=== PATIENT | male | born 1990 | race Caucasian/White ===

== ENCOUNTER 2019-02-05 19:36 | Inpatient (IN) | payer MEDICAID ==
[~2019-02-05] VITALS: Ht 170.2 cm; Wt 71.9 kg
[2019-02-05] MEDS ORDERED: ONDANSETRON HCL 4 MG/2 ML VIAL IVP ONE (20:00)
[2019-02-05] MEDS ORDERED: SODIUM CHLORIDE 0.9% 1,000 ML IV ONE ×2 (20:00→22:45)
[2019-02-05] MEDS ORDERED: KETOROLAC TROMETHAMINE 30 MG/ML VIAL IVP ONE (21:30)
[2019-02-05] MEDS ORDERED: MAGNESIUM SULFATE 2 GM/WATER 50 ML IV ONE (21:30)
[2019-02-05 21:40] LABS: APPEARANCE,URINE CLEAR (CLEAR); BILIRUBIN,URINE NEGATIVE (NEGATIVE); GLUCOSE, URINE (UA) NEGATIVE (NEGATIVE); KETONES,URINE NEGATIVE (NEGATIVE); LEUKOCYTE ESTERASE ,URINE NEGATIVE (NEGATIVE); NITRATE,URINE NEGATIVE (NEGATIVE); OCCULT BLOOD,URINE NEGATIVE (NEGATIVE); PH,URINE 7.5 (5.0-8.0); PROTEIN,URINE NEGATIVE (NEGATIVE); UROBILINOGEN,URINE 0.2 mg/dL (<=1.0)
[2019-02-05 21:54] LABS: BASOPHILS % (AUTO) 0.3 % (0.0-2.0); EOSINOPHILS % (AUTO) 0.1 % (1.0-6.0); HEMATOCRIT 45.3 % (41-53); HEMOGLOBIN 15.5 g/dL (13.5-17.5); LYMPHOCYTES # (AUTO) 0.8 K/uL (1.0-4.8); MEAN CORPUSCULAR HEMOGLOBIN 29.9 pg (26.0-34.0); MEAN CORPUSCULAR HGB CONC 34.2 G/dL (31.0-37.0); MEAN CORPUSCULAR VOLUME 87 fL (80-100); MONOCYTES # (AUTO) 0.7 K/uL (0.1-1.0); MONOCYTES % (AUTO) 3.3 % (2.0-9.0); NEUTROPHILS # (AUTO) 19.1 K/uL (1.8-7.7); PLATELET COUNT (AUTO) 320 K/uL (150-450); RED BLOOD CELL COUNT(AUTO) 5.18 MIL/uL (4.50-5.90); RED CELL DISTRIBUTION WIDTH 12.7 % (11.5-14.5)
[2019-02-05 22:13] LABS: ANION GAP 9 mmol/L (8-16); CALCIUM, TOTAL 8.5 mg/dL (8.8-10.5); CARBON DIOXIDE 25 mmol/L (22-29); CHLORIDE 102 mmol/L (98-107); CREATININE 0.77 mg/dL (0.60-1.30); GLOMERULAR FILTR. RATE CALC > 60 mL/min (>60); GLUCOSE,RANDOM 120 mg/dL (70-110); POTASSIUM 3.5 mmol/L (3.5-5.1); SODIUM SERUM 136 mmol/L (136-145); UREA NITROGEN, BLOOD 13 mg/dL (7-18)
[2019-02-05 22:18] LABS: ALANINE AMINOTRANSFERASE 28 U/L (12-78); ALBUMIN 3.7 g/dL (3.4-5.0); ALKALINE PHOSPHATASE 83 U/L (46-116); ASPARTATE AMINOTRANSFERASE 19 U/L (15-37); BILIRUBIN,TOTAL 0.4 mg/dL (0.1-1.0); LIPASE 78 U/L (73-393); TOTAL PROTEIN, SERUM 7.5 g/dL (6.4-8.2)
[2019-02-05 22:25] LABS: NEUTROPHILS % (AUTO) 92.3 % (40.0-70.0)
[2019-02-06] MEDS ORDERED: GADOBUTROL 1 MMOL/ML 10 ML VIAL IVP ONE (00:17)
[2019-02-06] MEDS ORDERED: LIDOCAINE 1% 10 ML VIAL ONE (03:33)
[2019-02-06] MEDS ORDERED: DEXAMETHASONE SOD PHOS 4 MG/ML 5 ML VIAL IVP ONE (04:15)
[2019-02-06] MEDS ORDERED: CefTRIAXone SODIUM 2 GM in DEXTROSE 5%-WATER 50 ML IV ONE (04:15)
[2019-02-06] MEDS ORDERED: MORPHINE SULFATE 4 MG/ML SYRINGE IVP ONE (04:15)
[2019-02-06] MEDS ORDERED: ONDANSETRON HCL 4 MG/2 ML VIAL IVP ONE (04:15)
[2019-02-06] MEDS ORDERED: CefTRIAXone 1 GM/DEXTROSE 50 ML IV ONE (04:15)
[2019-02-06] MEDS ORDERED: VANCOMYCIN HCL 1 GM/D5% WATER 200 ML IV ONE (04:15)
[2019-02-06 04:44] LABS: GLUCOSE, CSF 1 mg/dL (50-80)
[2019-02-06] MEDS ORDERED: OxyCODONE HCL/ACETAMINOPHEN 5-325 MG TABLET PO PRN (04:45)
[2019-02-06] MEDS ORDERED: MAGNESIUM HYDROXIDE SUSPENSION 30 ML UDCUP PO PRN (04:45)
[2019-02-06] MEDS ORDERED: ZOLPIDEM TARTRATE 5 MG TABLET PO PRN (04:45)
[2019-02-06] MEDS ORDERED: MORPHINE SULFATE 2 MG/ML SYRINGE IVP PRN (04:45)
[2019-02-06] MEDS ORDERED: ALBUTEROL SULFATE 2.5 MG/0.5 ML NEB SOLUTION NEB PRN (04:45)
[2019-02-06] MEDS ORDERED: ONDANSETRON HCL 4 MG/2 ML VIAL IVP PRN (04:45)
[2019-02-06] MEDS ORDERED: BISACODYL 10 MG RECTAL RECTAL SUPPOSITORY PR PRN (04:45)
[2019-02-06] MEDS ORDERED: IPRATROPIUM BROMIDE 0.5 MG/2.5 ML NEB SOLUTION NEB PRN (04:45)
[2019-02-06 04:52] LABS: TOTAL PROTEIN, CSF 358 mg/dL (15-45)
[2019-02-06 05:45] LABS: CSF TOTAL VOLUME 11.5 mL; CSF TUBE NUMBER 1
[2019-02-06 05:46] LABS: APPEARANCE,CSF CLOUDY (CLEAR); COLOR,CSF COLORLESS (COLORLESS)
[2019-02-06 05:47] LABS: WHITE BLOOD CELL1,CSF 227.8 CMM (0-5)
[2019-02-06 05:48] LABS: CSF 2ND TUBE NUMBER 4; LYMPHOCYTES1,CSF 6 %; MONOCYTES1,CSF 4 %; NEUTROPHILS1,CSF 90 %; RED BLOOD CELL1,CSF 1967.2 CMM (0-0)
[2019-02-06 05:49] LABS: APPEARANCE2,CSF CLOUDY (CLEAR); COLOR2,CSF COLORLESS (COLORLESS)
[2019-02-06 05:50] LABS: LYMPHOCYTES2,CSF 6 %; NEUTROPHILS2,CSF 88 %; RED BLOOD CELL2,CSF 246.7 CMM (0-0)
[2019-02-06 05:52] LABS: MONOCYTES2,CSF 6 %
[2019-02-06] MEDS: FAMOTIDINE 20 MG TABLET PO SCH (08:53)
[2019-02-06] MEDS: HEPARIN SODIUM,PORCINE 5,000 UNITS/ML VIAL SQ SCH ×2 (08:54→19:57)
[2019-02-06] MEDS ORDERED: VANCOMYCIN HCL 1 GM/D5% WATER 200 ML IV SCH (10:00)
[2019-02-06 12:05] VITALS: BP 120/64
[2019-02-06] MEDS ORDERED: SODIUM CHLORIDE 0.9% 500 ML IV ONE (13:49)
[2019-02-06] MEDS: VANCOMYCIN HCL 1 GM/D5% WATER 200 ML IV SCH ×3 (13:52→23:07)
[2019-02-06 15:29] VITALS: BP 106/56
[2019-02-06] MEDS: CefTRIAXone SODIUM 2 GM in DEXTROSE 5%-WATER 50 ML IV SCH (16:50)
[2019-02-06 19:23] VITALS: BP 116/59
[2019-02-06 23:26] VITALS: BP 115/57
[2019-02-07] MEDS: CefTRIAXone SODIUM 2 GM in DEXTROSE 5%-WATER 50 ML IV SCH ×2 (03:46→16:05)
[2019-02-07 03:55] VITALS: BP 111/60
[2019-02-07] MEDS: VANCOMYCIN HCL 1 GM/D5% WATER 200 ML IV SCH ×4 (05:01→23:22)
[2019-02-07 05:55] LABS: BASOPHILS % (AUTO) 0.1 % (0.0-2.0); EOSINOPHILS % (AUTO) 0 % (1.0-6.0); HEMATOCRIT 44.4 % (41-53); HEMOGLOBIN 14.8 g/dL (13.5-17.5); LYMPHOCYTES # (AUTO) 1.7 K/uL (1.0-4.8); LYMPHOCYTES % (AUTO) 12.7 % (22.0-44.0); MEAN CORPUSCULAR HEMOGLOBIN 29.8 pg (26.0-34.0); MEAN CORPUSCULAR HGB CONC 33.3 G/dL (31.0-37.0); MEAN CORPUSCULAR VOLUME 90 fL (80-100); MONOCYTES % (AUTO) 7.2 % (2.0-9.0); NEUTROPHILS # (AUTO) 10.6 K/uL (1.8-7.7); PLATELET COUNT (AUTO) 328 K/uL (150-450); RED BLOOD CELL COUNT(AUTO) 4.97 MIL/uL (4.50-5.90); RED CELL DISTRIBUTION WIDTH 13.1 % (11.5-14.5)
[2019-02-07 07:17] LABS: ALANINE AMINOTRANSFERASE 22 U/L (12-78); ALBUMIN 3.3 g/dL (3.4-5.0); ALKALINE PHOSPHATASE 73 U/L (46-116); ANION GAP 10 mmol/L (8-16); ASPARTATE AMINOTRANSFERASE 14 U/L (15-37); BILIRUBIN,TOTAL 0.2 mg/dL (0.1-1.0); CALCIUM, TOTAL 8.9 mg/dL (8.8-10.5); CARBON DIOXIDE 25 mmol/L (22-29); CHLORIDE 105 mmol/L (98-107); GLOMERULAR FILTR. RATE CALC > 60 mL/min (>60); GLUCOSE,RANDOM 142 mg/dL (70-110); PHOSPHORUS 3.7 mg/dL (2.5-4.9); POTASSIUM 3.8 mmol/L (3.5-5.1); SODIUM SERUM 140 mmol/L (136-145); TOTAL PROTEIN, SERUM 7.2 g/dL (6.4-8.2); UREA NITROGEN, BLOOD 15 mg/dL (7-18); VANCOMYCIN,RANDOM 30.3 mcg/mL (25.0-50.0)
[2019-02-07 07:40] VITALS: BP 111/64
[2019-02-07] MEDS: HEPARIN SODIUM,PORCINE 5,000 UNITS/ML VIAL SQ SCH ×2 (07:52→20:41)
[2019-02-07] MEDS: FAMOTIDINE 20 MG TABLET PO SCH (07:52)
[2019-02-07 11:12] VITALS: BP 110/60
[2019-02-07 11:17] VITALS: BP 133/74
[2019-02-07 15:16] VITALS: BP 120/65
[2019-02-07 19:54] VITALS: BP 133/76
[2019-02-08] VITALS: BP 103/62
[2019-02-08] MEDS: CefTRIAXone SODIUM 2 GM in DEXTROSE 5%-WATER 50 ML IV SCH ×2 (04:12→15:10)
[2019-02-08 04:43] VITALS: BP 112/60
[2019-02-08] MEDS: VANCOMYCIN HCL 1 GM/D5% WATER 200 ML IV SCH ×3 (05:43→17:44)
[2019-02-08 07:15] VITALS: BP 118/64
[2019-02-08 07:19] LABS: ANION GAP 11 mmol/L (8-16); CALCIUM, TOTAL 9.1 mg/dL (8.8-10.5); CARBON DIOXIDE 24 mmol/L (22-29); CHLORIDE 105 mmol/L (98-107); CREATININE 0.82 mg/dL (0.60-1.30); GLOMERULAR FILTR. RATE CALC > 60 mL/min (>60); GLUCOSE,RANDOM 99 mg/dL (70-110); SODIUM SERUM 140 mmol/L (136-145); UREA NITROGEN, BLOOD 13 mg/dL (7-18); VANCOMYCIN,RANDOM 36.6 mcg/mL (25.0-50.0)
[2019-02-08] MEDS: FAMOTIDINE 20 MG TABLET PO SCH (08:19)
[2019-02-08] MEDS: HEPARIN SODIUM,PORCINE 5,000 UNITS/ML VIAL SQ SCH ×2 (08:19→21:54)
[2019-02-08 11:00] VITALS: BP 92/52
[2019-02-08 15:28] VITALS: BP 109/60
[2019-02-08 19:42] VITALS: BP 147/79
[2019-02-09] MEDS: VANCOMYCIN HCL 1 GM/D5% WATER 200 ML IV SCH ×4 (00:13→17:55)
[2019-02-09 00:22] VITALS: BP 122/52
[2019-02-09 05:07] VITALS: BP 112/73
[2019-02-09] MEDS: CefTRIAXone SODIUM 2 GM in DEXTROSE 5%-WATER 50 ML IV SCH ×2 (05:08→15:37)
[2019-02-09 06:23] LABS: ANION GAP 9 mmol/L (8-16); CALCIUM, TOTAL 9.3 mg/dL (8.8-10.5); CARBON DIOXIDE 30 mmol/L (22-29); CHLORIDE 99 mmol/L (98-107); CREATININE 0.83 mg/dL (0.60-1.30); GLOMERULAR FILTR. RATE CALC > 60 mL/min (>60); GLUCOSE,RANDOM 113 mg/dL (70-110); POTASSIUM 3.6 mmol/L (3.5-5.1); SODIUM SERUM 138 mmol/L (136-145); UREA NITROGEN, BLOOD 14 mg/dL (7-18)
[2019-02-09 07:48] VITALS: BP 117/68
[2019-02-09] MEDS: FAMOTIDINE 20 MG TABLET PO SCH (08:04)
[2019-02-09] MEDS: HEPARIN SODIUM,PORCINE 5,000 UNITS/ML VIAL SQ SCH ×2 (08:05→21:00)
[2019-02-09 11:37] VITALS: BP 103/75
[2019-02-09 15:48] VITALS: BP 118/74
[2019-02-09 19:21] VITALS: BP 131/85
[2019-02-10 00:04] VITALS: BP 117/70
[2019-02-10] MEDS: VANCOMYCIN HCL 1 GM/D5% WATER 200 ML IV SCH ×2 (03:01→06:23)
[2019-02-10] MEDS: CefTRIAXone SODIUM 2 GM in DEXTROSE 5%-WATER 50 ML IV SCH ×2 (03:03→16:30)
[2019-02-10 03:58] VITALS: BP 119/75
[2019-02-10 07:09] LABS: ANION GAP 10 mmol/L (8-16); CALCIUM, TOTAL 9.5 mg/dL (8.8-10.5); CARBON DIOXIDE 26 mmol/L (22-29); CHLORIDE 101 mmol/L (98-107); CREATININE 0.79 mg/dL (0.60-1.30); GLOMERULAR FILTR. RATE CALC > 60 mL/min (>60); GLUCOSE,RANDOM 95 mg/dL (70-110); POTASSIUM 4.1 mmol/L (3.5-5.1); SODIUM SERUM 137 mmol/L (136-145); UREA NITROGEN, BLOOD 12 mg/dL (7-18); VANCOMYCIN,RANDOM 26.4 mcg/mL (25.0-50.0)
[2019-02-10 08:10] VITALS: BP 111/70
[2019-02-10] MEDS: HEPARIN SODIUM,PORCINE 5,000 UNITS/ML VIAL SQ SCH ×2 (08:13→20:03)
[2019-02-10] MEDS: FAMOTIDINE 20 MG TABLET PO SCH (08:13)
[2019-02-10 11:33] VITALS: BP 100/52
[2019-02-10] MEDS: VANCOMYCIN HCL 1.25 GM in DEXTROSE 5%-WATER 250 ML IV SCH ×2 (12:27→18:14)
[2019-02-10 15:08] VITALS: BP 98/53
[2019-02-10] MEDS ORDERED: SODIUM CHLORIDE 0.9% 250 ML IV ONE (16:32)
[2019-02-10 20:07] VITALS: BP 133/92
[2019-02-11 00:11] VITALS: BP 124/64
[2019-02-11] MEDS: VANCOMYCIN HCL 1.25 GM in DEXTROSE 5%-WATER 250 ML IV SCH ×2 (00:38→05:29)
[2019-02-11] MEDS: CefTRIAXone SODIUM 2 GM in DEXTROSE 5%-WATER 50 ML IV SCH ×2 (04:03→16:08)
[2019-02-11 04:14] VITALS: BP 122/67
[2019-02-11 06:12] LABS: ANION GAP 10 mmol/L (8-16); CALCIUM, TOTAL 9.2 mg/dL (8.8-10.5); CARBON DIOXIDE 26 mmol/L (22-29); CHLORIDE 102 mmol/L (98-107); CREATININE 0.87 mg/dL (0.60-1.30); GLOMERULAR FILTR. RATE CALC > 60 mL/min (>60); GLUCOSE,RANDOM 106 mg/dL (70-110); POTASSIUM 4.1 mmol/L (3.5-5.1); SODIUM SERUM 138 mmol/L (136-145); UREA NITROGEN, BLOOD 13 mg/dL (7-18)
[2019-02-11 07:43] VITALS: BP 125/78
[2019-02-11] MEDS: FAMOTIDINE 20 MG TABLET PO SCH (08:53)
[2019-02-11] MEDS: HEPARIN SODIUM,PORCINE 5,000 UNITS/ML VIAL SQ SCH ×2 (08:53→20:11)
[2019-02-11 11:33] VITALS: BP 122/81
[2019-02-11] MEDS: VANCOMYCIN HCL 1 GM/D5% WATER 200 ML IV SCH ×3 (12:12→23:15)
[2019-02-11 15:27] VITALS: BP 118/70
[2019-02-11] MEDS: ACETAMINOPHEN 325 MG TABLET PO PRN (20:11)
[2019-02-11 20:45] VITALS: BP 144/90
[2019-02-12] VITALS (7 sets, daily range): BP systolic 97–127; BP diastolic 55–74
[2019-02-12] MEDS: CefTRIAXone SODIUM 2 GM in DEXTROSE 5%-WATER 50 ML IV SCH ×2 (04:24→16:07)
[2019-02-12] MEDS ORDERED: SODIUM CHLORIDE 0.9% 250 ML IV ONE (04:29)
[2019-02-12 05:49] LABS: BASOPHILS % (AUTO) 0.6 % (0.0-2.0); EOSINOPHILS % (AUTO) 7.2 % (1.0-6.0); HEMOGLOBIN 16.6 g/dL (13.5-17.5); LYMPHOCYTES # (AUTO) 2.2 K/uL (1.0-4.8); LYMPHOCYTES % (AUTO) 21.9 % (22.0-44.0); MEAN CORPUSCULAR HEMOGLOBIN 30.4 pg (26.0-34.0); MEAN CORPUSCULAR HGB CONC 33.9 G/dL (31.0-37.0); MEAN CORPUSCULAR VOLUME 90 fL (80-100); MONOCYTES # (AUTO) 0.9 K/uL (0.1-1.0); NEUTROPHILS # (AUTO) 6.2 K/uL (1.8-7.7); NEUTROPHILS % (AUTO) 61.3 % (40.0-70.0); PLATELET COUNT (AUTO) 355 K/uL (150-450); RED BLOOD CELL COUNT(AUTO) 5.47 MIL/uL (4.50-5.90); RED CELL DISTRIBUTION WIDTH 13.2 % (11.5-14.5)
[2019-02-12] MEDS: VANCOMYCIN HCL 1 GM/D5% WATER 200 ML IV SCH ×4 (06:11→23:46)
[2019-02-12 07:23] LABS: ANION GAP 9 mmol/L (8-16); CALCIUM, TOTAL 9.4 mg/dL (8.8-10.5); CARBON DIOXIDE 27 mmol/L (22-29); CHLORIDE 102 mmol/L (98-107); CREATININE 0.91 mg/dL (0.60-1.30); GLOMERULAR FILTR. RATE CALC > 60 mL/min (>60); GLUCOSE,RANDOM 99 mg/dL (70-110); POTASSIUM 4.3 mmol/L (3.5-5.1); SODIUM SERUM 138 mmol/L (136-145); UREA NITROGEN, BLOOD 12 mg/dL (7-18); VANCOMYCIN,RANDOM 18.2 mcg/mL (25.0-50.0)
[2019-02-12] MEDS: HEPARIN SODIUM,PORCINE 5,000 UNITS/ML VIAL SQ SCH ×2 (08:40→20:57)
[2019-02-12] MEDS: FAMOTIDINE 20 MG TABLET PO SCH (08:40)
[2019-02-12 11:17] LABS: HERPES SIMPLEX VIRUS-1 BY PCR Negative (Negative); HERPES SIMPLEX VIRUS-2 BY PCR Negative (Negative)
[2019-02-12] MEDS: ACETAMINOPHEN 325 MG TABLET PO PRN (21:01)
[2019-02-13] MEDS: CefTRIAXone SODIUM 2 GM in DEXTROSE 5%-WATER 50 ML IV SCH ×2 (03:20→16:04)
[2019-02-13 04:53] VITALS: BP 134/84
[2019-02-13] MEDS: VANCOMYCIN HCL 1 GM/D5% WATER 200 ML IV SCH ×3 (05:17→18:04)
[2019-02-13 06:12] LABS: ANION GAP 10 mmol/L (8-16); CALCIUM, TOTAL 9.1 mg/dL (8.8-10.5); CARBON DIOXIDE 26 mmol/L (22-29); CHLORIDE 102 mmol/L (98-107); CREATININE 0.88 mg/dL (0.60-1.30); GLOMERULAR FILTR. RATE CALC > 60 mL/min (>60); GLUCOSE,RANDOM 108 mg/dL (70-110); POTASSIUM 3.9 mmol/L (3.5-5.1); SODIUM SERUM 138 mmol/L (136-145); UREA NITROGEN, BLOOD 16 mg/dL (7-18)
[2019-02-13 07:32] VITALS: BP 135/71
[2019-02-13] MEDS: HEPARIN SODIUM,PORCINE 5,000 UNITS/ML VIAL SQ SCH ×2 (08:14→21:27)
[2019-02-13] MEDS: FAMOTIDINE 20 MG TABLET PO SCH (08:14)
[2019-02-13 10:15] LABS: ORGANISM ID Not indicated.; S PNEUMO SOURCE Urine; STREP PNEUMONIAE AG URINE Negative (Negative); STREP.PNEUMO BODY FLUID CULT. Not Indicated
[2019-02-13 11:23] VITALS: BP 126/73
[2019-02-13 12:15] LABS: QUANTIFERON+, Nil Value 0.05 IU/mL; QUANTIFERON+,Mitogen Value >10.00 IU/mL; QUANTIFERON+,TB2 Antigen Value 0.31 IU/mL; QUANTIFERON, TB GOLD PLUS Negative (Negative)
[2019-02-13 15:56] VITALS: BP 127/61
[2019-02-13 19:16] VITALS: BP 135/73
[2019-02-13] MEDS ORDERED: SODIUM CHLORIDE 0.9% 500 ML IV ONE (23:29)
[2019-02-14] VITALS (7 sets, daily range): BP systolic 110–137; BP diastolic 57–78
[2019-02-14] MEDS: VANCOMYCIN HCL 1 GM/D5% WATER 200 ML IV SCH ×2 (00:06→05:19)
[2019-02-14] MEDS: CefTRIAXone SODIUM 2 GM in DEXTROSE 5%-WATER 50 ML IV SCH (04:29)
[2019-02-14 05:42] LABS: ANION GAP 7 mmol/L (8-16); CALCIUM, TOTAL 8.8 mg/dL (8.8-10.5); CARBON DIOXIDE 30 mmol/L (22-29); CHLORIDE 104 mmol/L (98-107); CREATININE 0.94 mg/dL (0.60-1.30); GLOMERULAR FILTR. RATE CALC > 60 mL/min (>60); GLUCOSE,RANDOM 144 mg/dL (70-110); POTASSIUM 3.8 mmol/L (3.5-5.1); SODIUM SERUM 141 mmol/L (136-145); UREA NITROGEN, BLOOD 13 mg/dL (7-18); VANCOMYCIN,RANDOM 16.3 mcg/mL (25.0-50.0)
[2019-02-14] MEDS: HEPARIN SODIUM,PORCINE 5,000 UNITS/ML VIAL SQ SCH ×2 (08:17→20:07)
[2019-02-14] MEDS: FAMOTIDINE 20 MG TABLET PO SCH (08:17)
[2019-02-14] MEDS ORDERED: VANCOMYCIN HCL 1.25 GM in DEXTROSE 5%-WATER 250 ML IV SCH (12:00)
[2019-02-15 05:08] VITALS: BP 114/60
[2019-02-15 05:48] LABS: ANION GAP 7 mmol/L (8-16); CARBON DIOXIDE 30 mmol/L (22-29); CHLORIDE 102 mmol/L (98-107); CREATININE 0.87 mg/dL (0.60-1.30); GLUCOSE,RANDOM 122 mg/dL (70-110); POTASSIUM 4.5 mmol/L (3.5-5.1); SODIUM SERUM 139 mmol/L (136-145); UREA NITROGEN, BLOOD 15 mg/dL (7-18)
[2019-02-15 05:49] LABS: CALCIUM, TOTAL 9.7 mg/dL (8.8-10.5); GLOMERULAR FILTR. RATE CALC > 60 mL/min (>60)
[2019-02-15 07:05] VITALS: BP 105/56
[2019-02-15] MEDS: HEPARIN SODIUM,PORCINE 5,000 UNITS/ML VIAL SQ SCH ×2 (08:48→21:17)
[2019-02-15] MEDS: FAMOTIDINE 20 MG TABLET PO SCH (08:48)
[2019-02-15 11:01] VITALS: BP 98/67
[2019-02-15 15:12] VITALS: BP 117/56
[2019-02-15 18:22] LABS: COCCIDIOIDES AB CSF (CF) <1:2 (<1:2); CSF COCCIDIOIDES AB (ID) None Detected; CSF COCCIDIOIDES AB IGG 0.4 IV (<=0.9); CSF COCCIDIOIDES AB IGM 0.2 IV (<=0.9)
[2019-02-15 20:23] VITALS: BP 129/78
[2019-02-16] VITALS (7 sets, daily range): BP systolic 105–125; BP diastolic 54–79
[2019-02-16 07:00] LABS: ANION GAP 8 mmol/L (8-16); CALCIUM, TOTAL 9.7 mg/dL (8.8-10.5); CARBON DIOXIDE 28 mmol/L (22-29); CHLORIDE 102 mmol/L (98-107); CREATININE 0.84 mg/dL (0.60-1.30); GLOMERULAR FILTR. RATE CALC > 60 mL/min (>60); GLUCOSE,RANDOM 98 mg/dL (70-110); POTASSIUM 4.3 mmol/L (3.5-5.1); SODIUM SERUM 138 mmol/L (136-145); UREA NITROGEN, BLOOD 15 mg/dL (7-18)
[2019-02-16] MEDS: HEPARIN SODIUM,PORCINE 5,000 UNITS/ML VIAL SQ SCH ×2 (08:16→20:42)
[2019-02-16] MEDS: FAMOTIDINE 20 MG TABLET PO SCH (08:16)
[2019-02-17 04:48] VITALS: BP 114/79
[2019-02-17 07:16] VITALS: BP 112/78
[2019-02-17] MEDS: FAMOTIDINE 20 MG TABLET PO SCH (08:35)
[2019-02-17] MEDS: HEPARIN SODIUM,PORCINE 5,000 UNITS/ML VIAL SQ SCH ×2 (08:35→20:42)
[2019-02-17 11:14] VITALS: BP 132/61
[2019-02-17 15:15] VITALS: BP 103/50
[2019-02-17 19:24] VITALS: BP 107/86
[2019-02-18 00:12] VITALS: BP 125/72
[2019-02-18 05:19] VITALS: BP 120/77
[2019-02-18 07:51] VITALS: BP 118/76
[2019-02-18] MEDS: FAMOTIDINE 20 MG TABLET PO SCH (08:14)
[2019-02-18] MEDS: HEPARIN SODIUM,PORCINE 5,000 UNITS/ML VIAL SQ SCH ×2 (08:14→21:00)
[2019-02-18 11:25] VITALS: BP_SYST 128; BP_SYST 137; BP_DIAS 85; BP_DIAS 90
[2019-02-18 15:48] VITALS: BP 145/77
[2019-02-18 19:56] VITALS: BP 129/63
[2019-02-19 05:08] VITALS: BP 143/78
[2019-02-19 07:12] VITALS: BP 122/69
[2019-02-19] MEDS: FAMOTIDINE 20 MG TABLET PO SCH (08:39)
[2019-02-19] MEDS: HEPARIN SODIUM,PORCINE 5,000 UNITS/ML VIAL SQ SCH ×2 (08:39→20:48)
[2019-02-19 10:50] VITALS: BP 121/77
[2019-02-19 19:40] VITALS: BP 148/76
[2019-02-19 23:27] VITALS: BP 148/74
[2019-02-20 04:24] VITALS: BP 110/71
[2019-02-20 07:31] VITALS: BP 134/74
[2019-02-20] MEDS: HEPARIN SODIUM,PORCINE 5,000 UNITS/ML VIAL SQ SCH ×2 (08:39→21:22)
[2019-02-20] MEDS: FAMOTIDINE 20 MG TABLET PO SCH (08:39)
[2019-02-20 11:17] VITALS: BP 103/48
[2019-02-20] MEDS: DEXAMETHASONE 4 MG TABLET PO SCH (12:50)
[2019-02-20 15:34] VITALS: BP 116/78
[2019-02-20 20:15] VITALS: BP 128/76
[2019-02-20 23:52] VITALS: BP 133/74
[2019-02-21 05:15] VITALS: BP 119/79
[2019-02-21 08:23] VITALS: BP 130/81
[2019-02-21] MEDS: HEPARIN SODIUM,PORCINE 5,000 UNITS/ML VIAL SQ SCH ×2 (08:43→20:31)
[2019-02-21] MEDS: DEXAMETHASONE 4 MG TABLET PO SCH (08:43)
[2019-02-21] MEDS ORDERED: ALBENDAZOLE 200 MG TABLET PO SCH (09:00)
[2019-02-21] MEDS: FAMOTIDINE 20 MG TABLET PO SCH (09:00)
[2019-02-21] MEDS: ALBENDAZOLE 200 MG TABLET PO SCH ×2 (11:15→20:31)
[2019-02-21 11:36] VITALS: BP 138/82
[2019-02-21 15:43] VITALS: BP 133/72
[2019-02-21 19:42] VITALS: BP 128/59
[2019-02-22 00:08] VITALS: BP 119/59
[2019-02-22 04:59] VITALS: BP 114/69
[2019-02-22 07:29] VITALS: BP 112/66
[2019-02-22] MEDS: ALBENDAZOLE 200 MG TABLET PO SCH (08:46)
[2019-02-22] MEDS: HEPARIN SODIUM,PORCINE 5,000 UNITS/ML VIAL SQ SCH (08:46)
[2019-02-22] MEDS: FAMOTIDINE 20 MG TABLET PO SCH (08:46)
[2019-02-22] MEDS: DEXAMETHASONE 4 MG TABLET PO SCH (08:46)
[2019-02-22 11:28] VITALS: BP 132/86
[2019-02-22] MEDS ORDERED: ALBE200T PO (12:36)
[2019-02-22] MEDS ORDERED: DEXA4TAB PO (12:37)
[2019-02-22 15:21] VITALS: BP 140/86
== END 2019-02-22 19:20 | disposition home or self-care (01) | DRG 248 ==
LOC: EMS 19:39 → 5S 02-06 08:38
PROVIDERS: ADMIT Internal Medicine; ATTEND Internal Medicine
DX: B69.0 Cysticercosis of central nervous system (principal); R65.10 Systemic inflammatory response syndrome (SIRS) of non-infectious origin without acute organ dysfunction; G93.2 Benign intracranial hypertension
CPT/HCPCS: 62270; 70450; 70553; 82945; 83605; 83735; 84100; 84157; 86171; 86403; 86480; 86635; 86682; 87040; 87070; 87205; 87529; 87556; 87899; 89051; 96365; 96366; 96375; A9585; G0378; J0696; J1100; J1644; J1885; J2270; J2405; J3370; J3475; J3490; J7030; J7040; J7050; J7060; J8540